=== PATIENT | female | born 1980 | race Caucasian/White ===

== ENCOUNTER 2016-10-04 02:35 | Emergency (ER) | payer OTHER ==
[2016-10-04 02:55] VITALS: BP 133/83; PULSE 77; RESP 16; TEMP 97.7; O2SAT 96
[2016-10-04] MEDS ORDERED: IBUPROFEN 600 MG TAB PO ONE ×2 (03:08→03:12)
--- NOTE | 2016-10-04 04:44 | EDPHY ---
H & P Stated Complaint: rib pain after coughing today Time Seen by Provider: 10/04/16 03:28 HPI/ROS: HPI The patient presents with anterior bilateral lower chest pain which began at about 1:00 a.m. she has been coughing for the last 1 day and has a sore throat for the last several days. She believes the pain is in her lower rib cage and is sharp in nature. She has not had any fevers, trauma to the area, lower extremity edema, recent airplane flights or car travel.. REVIEW OF SYSTEMS Constitutional: No fever, no chills. Eyes: No discharge. ENT: sore throat. Cardiovascular: See HPI Respiratory: No cough, no shortness of breath. PMHx: Healthy Soc Hx: Nonsmoker PHYSICAL General Appearance: Alert, no distress Eyes: Pupils equal and round no pallor or injection ENT, Mouth: Mucous membranes moist Respiratory: There are no retractions, lungs are clear to auscultation Cardiovascular: Tenderness to the lower rib segments anteriorly bilaterally, Regular rate and rhythm Gastrointestinal: Abdomen is soft and non-tender, no masses, bowel sounds normal Neurological: A&O, moves all extremities Skin: Warm and dry, no rashes Musculoskeletal: Neck is supple non tender Extremities: symmetrical, full range of motion Psychiatric: Patient is oriented X 3, there is no agitation Source: Patient - Personal History LMP (Females 10-55): 8-14 Days Ago Current Tetanus/Diphtheria Vaccine: Yes Current Tetanus Diphtheria and Acellular Pertussis (TDAP): Yes - Medical/Surgical History Hx Asthma: No Hx Chronic Respiratory Disease: No Hx Diabetes: No Hx Cardiac Disease: No Hx Renal Disease: No Hx Cirrhosis: No Hx Alcoholism: No Hx HIV/AIDS: No Hx Splenectomy or Spleen Trauma: No Other PMH: R HIP SURGERY 12/07/2014. DYLAN 2004 - Social History Smoking Status: Never smoked Constitutional: Initial Vital Signs Temperature (C) 36.5 C 10/04/16 02:53 Heart Rate 77 10/04/16 02:53 Respiratory Rate 16 10/04/16 02:53 Blood Pressure 133/83 H 10/04/16 02:53 O2 Sat (%) 96 10/04/16 02:53 O2 Delivery Mode Room Air Allergies/Adverse Reactions: hydrocodone Allergy (Verified 10/04/16 02:51) oxycodone Allergy (Verified 10/04/16 02:51) Sulfa (Sulfonamide Antibiotics) Allergy (Verified 10/04/16 02:51) Home Medications: Medication Instructions Recorded Folic Acid 10/04/16 Vitamin B12 10/04/16 Vitamin D3 10/04/16 Medical Decision Making - Diagnostics EKG Interpretation: EKG: Complete interpretation has been separately recorded in the [facility] archive. Summary impression: Normal sinus rhythm Imaging: Chest x-ray two views shows no cardiomegaly, and no pneumonia, no pneumothorax, interpreted by me, radiology interpretation is pending. Differential Diagnosis: This is a 36-year-old healthy woman who comes in with anterior chest pain after cough and sore throat. On exam, she is well-appearing with normal vital signs. Differential diagnosis includes pericarditis, costochondritis, less likely pneumothorax, less likely rib fracture. In the emergency room, the patient was given ibuprofen for her pain. Chest x- ray and EKG were performed and were unremarkable. I feel she is likely suffering from costochondritis and I have explained this to her. She will be discharged with instructions for anti-inflammatory medications for pain. - Data Points Medications Given: Discontinued Medications Ibuprofen (Motrin) 600 mg PO EDNOW ONE Stop: 10/04/16 03:13 Last Admin: 10/04/16 03:13 Dose: 600 mg Departure - Departure Disposition: Home, Routine, Self-Care Clinical Impression: Costochondritis Condition: Good Instructions: Costochondritis (ED) Referrals: JAYLEN ARORA [Other] - As per Instructions
--- NOTE | 2016-10-04 04:46 | CPEKG ---
Heart Rate: 55 RR Interval: 1091 P-R Interval: 144 QRSD Interval: 78 QT Interval: 420 QTC Interval: 402 P [place]: 65 QRS [place]: 4 T Wave [place]: 36 EKG Severity - NORMAL ECG - EKG Impression: SINUS RHYTHM Electronically Signed By: Gina tSorm 04-Oct-2016 23:10:09
== END 2016-10-04 05:05 | disposition home or self-care (01) ==
DX: M94.0 Chondrocostal junction syndrome [Tietze] (principal)

== ENCOUNTER 2017-06-04 10:26 | Emergency (ER) | payer OTHER ==
[2017-06-04] MEDS ORDERED: NS 1,000 ML IV ONE (10:46)
--- NOTE | 2017-06-04 10:49 | EDPHY ---
H & P Stated Complaint: epigastric pain x 5 days ,nausea Time Seen by Provider: 06/04/17 10:42 HPI/ROS: CHIEF COMPLAINT: Epigastric pain HISTORY OF PRESENT ILLNESS: The patient is a 36-year-old female who comes to the emergency department complaining of epigastric pain for the last 5 days. She has been treated in the past for GERD successfully with omeprazole. She been taking that this all week without any improvement. Today she presented to the [facility]. There she was given a GI cocktail without improvement. She had a test for H pylori which was negative and a negative CBC and chemistry. She was sent here for further evaluation. She denies chest pain or shortness of breath. She has a history of cholecystectomy. She denies . No urinary symptoms. No lower abdominal pain. No diarrhea. No vomiting. REVIEW OF SYSTEMS: Constitutional: denies: chills, fever, recent illness, recent injury EENTM: denies: blurred vision, double vision, nose congestion Respiratory: denies: cough, shortness of breath Cardiac: denies: chest pain, irregular heart rate, lightheadedness, palpitations Gastrointestinal/Abdominal: See HPI Genitourinary: denies: dysuria, frequency, hematuria, pain Musculoskeletal: denies: joint pain, muscle pain Skin: denies: lesions, rash, jaundice, bruising Neurological: denies: headache, numbness, paresthesia, tingling, dizziness, weakness Hematologic/Lymphatic: denies: blood clots, easy bleeding, easy bruising Immunologic/allergic: denies: HIV/AIDS, transplant EXAM: GENERAL: Well-appearing, well-nourished and in no acute distress. HEAD: Atraumatic, normocephalic. EYES: Pupils equal round and reactive to light, extraocular movements intact, sclera anicteric, conjunctiva are normal. ENT: TMs normal, nares patent, oropharynx clear without exudates. Moist mucous membranes. NECK: Normal range of motion, supple without lymphadenopathy or JVD. LUNGS: Breath sounds clear to auscultation bilaterally and equal. No wheezes rales or rhonchi. HEART: Regular rate and rhythm without murmurs, rubs or gallops. ABDOMEN: Epigastric tenderness, no rebound BACK: No CVA tenderness, no spinal tenderness, step-offs or deformities EXTREMITIES: Normal range of motion, no pitting or edema. No clubbing or cyanosis. NEUROLOGICAL: Cranial nerves II through XII grossly intact. Normal speech, normal gait. 5/5 strength, normal movement in all extremities, normal sensation PSYCH: Normal mood, normal affect. SKIN: Warm, dry, normal turgor, no visible rashes or lesions. Source: Patient Exam Limitations: No limitations - Personal History LMP (Females 10-55): IUD In Place Current Tetanus/Diphtheria Vaccine: Unsure Current Tetanus Diphtheria and Acellular Pertussis (TDAP): Unsure - Medical/Surgical History Hx Asthma: No Hx Chronic Respiratory Disease: No Hx Diabetes: No Hx Cardiac Disease: No Hx Renal Disease: No Hx Cirrhosis: No Hx Alcoholism: No Hx HIV/AIDS: No Hx Splenectomy or Spleen Trauma: No Other PMH: R HIP SURGERY 12/07/2014. DYLAN 2004 - Family History Significant Family History: No pertinent family hx - Social History Smoking Status: Never smoked Alcohol Use: Sober Drug Use: None Constitutional: Initial Vital Signs Temperature (C) 36.5 C 06/04/17 10:28 Heart Rate 61 06/04/17 10:28 Respiratory Rate 16 06/04/17 10:28 Blood Pressure 128/85 H 06/04/17 10:28 O2 Sat (%) 98 06/04/17 10:28 O2 Delivery Mode Room Air Allergies/Adverse Reactions: hydrocodone Allergy (Verified 10/04/16 02:51) oxycodone Allergy (Verified 10/04/16 02:51) Sulfa (Sulfonamide Antibiotics) Allergy (Verified 10/04/16 02:51) Home Medications: Medication Instructions Recorded Omeprazole Magnesium 06/04/17 Medical Decision Making - Diagnostics EKG Interpretation: An EKG obtained and was read and documented in trace view. Please see trace view for full reading and report. Sinus rhythm, no acute ischemic changes ED Course/Re-evaluation: 1 o'clock we discussed the CT and lab results which are all very reassuring. I encouraged her to increase her omeprazole to 20 twice daily. I will refer her to Gastroenterology. We discussed indications for returning. Differential Diagnosis: Partial list of the Differential diagnosis considered include but were not limited to; acute coronary disease, pancreatitis, peptic ulcer disease and although unlikely based on the history and physical exam, I also considered bronchitis, pneumonia, dissection. I discussed these differential diagnoses and the plan with the patient as well as the usual and expected course. The patient understands that the diagnosis is provisional and that in medicine we are not always correct and that further workup is often warranted. Usual and customary warnings were given. All of the patient's questions were answered. The patient was instructed to return to the emergency department should the symptoms at all worsen or return, otherwise to followup with the physician as we discussed. - Data Points Laboratory Results: Laboratory Results 06/04/17 11:00 06/04/17 11:00 Medications Given: Discontinued Medications Sodium Chloride (Ns) 1,000 mls @ 0 mls/hr IV EDNOW ONE; Wide Open PRN Reason: Protocol Stop: 06/04/17 10:47 Last Admin: 06/04/17 11:17 Dose: 1,000 mls Departure - Departure Disposition: Home, Routine, Self-Care Clinical Impression: Epigastric pain Condition: Fair Instructions: Epigastric Pain (ED) Referrals: RAMIN CERRATO [Other] - As per Instructions Artem Lopez MD [Medical Doctor] - As per Instructions
--- NOTE | 2017-06-04 11:05 | CPEKG ---
Heart Rate: 65 RR Interval: 923 P-R Interval: 136 QRSD Interval: 72 QT Interval: 392 QTC Interval: 408 P [place]: 73 QRS [place]: 18 T Wave [place]: 46 EKG Severity - NORMAL ECG - EKG Impression: SINUS RHYTHM Electronically Signed By: Amol Cohen 04-Jun-2017 11:07:48
[2017-06-04 11:06] LABS: % IMMATURE GRANULYOCYTES 0.2 % (0.0-1.1); ABSOLUTE IMMATURE GRANULOCYTES 0.01 10^3/uL (0.00-0.10); ADD DIFF? NO; ADD MORPH? NO; ADD SCAN? NO; ATYPICAL LYMPHOCYTE FLAG 10 (0-99); FRAGMENT RBC FLAG 0 (0-99); HEMATOCRIT 40.1 % (38.0-47.0); HEMOGLOBIN 13.7 g/dL (12.6-16.3); LEFT SHIFT FLG 0 (0-99); LIPEMIA HEMOLYSIS FLAG 90 (0-99); MEAN CELL HEMOGLOBIN 30.9 pg (27.9-34.1); MEAN CELL HEMOGLOBIN CONCENTR. 34.2 g/dL (32.4-36.7); MEAN CELL VOLUME 90.3 fL (81.5-99.8); MEAN PLATELET VOLUME 9.7 fL (8.7-11.7); PLATELET CLUMPS FLAG 0 (0-99); PLATELET COUNT 230 10^3/uL (150-400); RED BLOOD CELL COUNT 4.44 10^6/uL (4.18-5.33); RED CELL DISTRIBUTION WIDTH 13.2 % (11.5-15.2)
[2017-06-04 11:23] LABS: ALANINE AMINOTRANSFERASE 26 IU/L (9-52); ALBUMIN 4.4 g/dL (3.5-5.0); ALKALINE PHOSPHATASE 68 IU/L (38-126); ANION GAP 13 mEq/L (8-16); ASPARTATE AMINOTRANSFERASE 27 IU/L (14-46); BILIRUBIN,TOTAL 1.1 mg/dL (0.1-1.4); BILIRUBIN-CONJUGATED 0.1 mg/dL (0.0-0.5); CALCIUM 9.3 mg/dL (8.5-10.4); CARBON DIOXIDE 23 mEq/l (22-31); CHLORIDE 104 mEq/L (97-110); CREATININE 0.7 mg/dL (0.6-1.0); GLOMERULAR FILTRATION RATE > 60; GLUCOSE 86 mg/dL (70-100); POTASSIUM 4.2 mEq/L (3.5-5.2); SODIUM 140 mEq/L (134-144); TOTAL PROTEIN 7.1 g/dL (6.3-8.2)
[2017-06-04] MEDS ORDERED: IOPAMIDOL (ISOVUE-300) 100 ML BTL ONE (11:47)
[2017-06-04 12:38] LABS: COLOR PALE YELLOW; LEUKOCYTE ESTERASE,URINE NEGATIVE (NEGATIVE); NITRITE,URINE NEGATIVE (NEGATIVE)
[2017-06-04 12:51] LABS: WBC,URINE NONE SEEN /hpf (0-3)
[2017-06-04 13:12] VITALS: BP 126/78; PULSE 65; RESP 18; TEMP 98.2; O2SAT 97
== END 2017-06-04 13:12 | disposition home or self-care (01) ==
DX: R10.13 Epigastric pain (principal); E86.9 Volume depletion, unspecified
CPT/HCPCS: Q9967